=== PATIENT | male | born 1985 | race Caucasian/White ===

== ENCOUNTER 2017-08-06 07:21 | Day surgery (SDC) | payer OTHER, MEDICAID ==
[~2017-08-06] VITALS: Ht 180.3 cm; Wt 70.3 kg
[~2017-08-06 07:21] MED LIST: FLEXERIL10 MG PO; ULTRAM50 MG PO
--- NOTE | 2017-08-06 09:12 | Operative Note ---
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 A minimally invasive incision was marked out and skin subcutaneous tissue and platysma were incised. Using various retractors the and blunt and sharp dissection the neoplasm was gradually mobilized, there was a significant amount of perilesional fibrosis. And the lesion was moderately vascular, all of the blood vessels were electrocoagulated and all bleeding was stopped blood loss was less than 10 mL. The lesion overlayed the sternomastoid muscle fascia, and anteriorly it extended deep to the fascia into the sternomastoid muscle at its upper end. The lesion was submitted. Surgicel Snow was placed over the sternomastoid muscle. And the repair was done and the tissue rearrangement fashion geometric plastic repair with 4-0 Vicryl and 4-0 nylon sutures. A Dermabond dressing was applied and the patient was sent to recovery in good general condition. EBL (ml): 2 Specimens obtained: Same as above Complications: None Additional Information: Ancef 1g and Decadron 12mg given preop at 0912
[2017-08-06 10:11] VITALS: BP 101/64
== END 2017-08-06 09:48 | disposition home or self-care (01) ==
LOC: SDC 07:21
PROVIDERS: Otolaryngology
PROC: 0JB50ZX Excision of Left Neck Subcutaneous Tissue and Fascia, Open Approach, Diagnostic (ICD-10-PCS; principal; 2017-08-06 08:30)
DX: D23.4 Other benign neoplasm of skin of scalp and neck (principal); R59.0 Localized enlarged lymph nodes